=== PATIENT | female | born 1975 ===

== ENCOUNTER → 2019-02-12 | Outpatient (REF) | payer OTHER ==
[2019-02-16 08:20] LABS: HPV HYBRID CAPTURE II Positive (Negative)
== END ==
LOC: M LAB LCGH 11:33
PROVIDERS: ATTEND Obstetrics & Gynecology
DX: Z12.4 Encounter for screening for malignant neoplasm of cervix (principal)

== ENCOUNTER → 2019-03-26 | Outpatient (REF) | LOC: M LAB LCGH 10:04 | PROVIDERS: ATTEND Obstetrics & Gynecology | DX: N87.0 Mild cervical dysplasia (principal); R87.810 Cervical high risk human papillomavirus (HPV) DNA test positive; Z97.5 Presence of (intrauterine) contraceptive device ==